=== PATIENT | female | born 1955 | race African-American/Black ===

== ENCOUNTER 2017-01-30 08:20 | Emergency (ER) | payer OTHER ==
[~2017-01-30] VITALS: Ht 162.6 cm; Wt 89.0 kg
[~2017-01-30 08:20] MED LIST: ADVAIR 250/501 DISK IH; ALEVE220 MG PO; ALLOPURINOL100 MG PO; AMBIEN10 MG PO; AMITRIPTYLINE H50 MG PO; AMLODIPINE BESY10 MG PO; ASPIRIN81 M2 PO; ATENOLOL25 M1 NG; CARVEDILOL12.5 MG PO; CARVEDILOL25 MG PO; CLOPIDOGREL75 MG PO; COLACE100 MG PO; COREG25 M1 PO; CRESTOR20 MG PO; CRESTOR40 MG PO; Coreg PO; DELTASONE20 M1 PO; DEXILANT30 MG PO; DIPHENHYDRAMINE25 M2 PO; DOCUSATE SODIU1 EACH PO; ECOTRIN325 MG PO; EFFEXOR XR150 MG PO; EFFEXOR XR75 MG PO; ESCITALOPRAM OX10 MG PO; Ecotrin PO; FLEXERIL10 MG PO; GABAPENTIN300 MG PO; HYDROCHLOROTHIA25 MG PO; LATANOPROST2.5 ML BOTH EYES; LIDEX 0.05% CRE60 GM TP; LISINOPRIL10 MG PO; LISINOPRIL40 MG PO; LO-DOSE ASPIRIN81 M1 PO; LYRICA150 MG PO; LYRICA50 MG PO; LYRICA75 MG PO; METHYLPREDNISOLO4 MG PO; MIRALAX17 GM PO; NICOTINE PATCH1 EAC1 TD; NICOTINE PATCH1 EACH TD; NITROSTAT0.4 MG SL; Norvasc PO; ONE-A-DAY ESSE1 EAC1 PO; OXYCODONE HCL10 MG PO; OXYCODONE HCL15 MG PO; PEN-VEE K,VEET500 MG PO; PERCOCET 7.5-51 EACH PO; PLAVIX75 MG PO; PREDNISONE20 MG PO; PROAIR HFA8.5 GM IH; Percocet 5/325,Endoc PO; Plavix PO; RANITIDINE HCL150 MG PO; SYMBICORT60 INHALA1 IH; TOPAMAX50 MG PO; VALIUM5 MG PO; VENLAFAXINE HC150 MG PO; VENTOLIN HFA18 GM IH; VITAMIN D-3 401 EACH PO; WELLBUTRIN75 MG PO; ZESTRIL,PRINIVI40 MG PO; ZITHROMAX250 MG PO; ZOLPIDEM TARTRAT5 MG PO; Zestril,Prinivil PO
[2017-01-30 12:51] LABS: EOSINOPHIL (%) 3.5 % (0-5); EOSINOPHIL COUNT 0.2 K/uL (0-0.3); HEMATOCRIT 41.9 % (36.0-46.0); IMMATURE GRANULOCYTE (%) 0.2 % (0.0-0.7); INSTRUMENT ABS NEUTROPHIL CT 2.5 K/uL; LYMPHOCYTE COUNT 1.6 K/uL (1.0-2.8); MCH 29.7 PG (29.0-34.0); MCV 92.9 FL (83-99); MEAN PLAT.VOLUME 10.8 uM^3 (9.5-12.4); MONOCYTE (%) 9.8 % (3-12); MONOCYTE COUNT 0.5 K/uL (0-0.8); NEUTROPHIL (%) 52.5 % (45-76); NEUTROPHIL COUNT 2.5 K/uL (1.8-6.4); PLATELET COUNT 185 K/uL (156-360); RBC DIS.WIDTH-CV 13.2 % (11.8-14.6); RBC DIS.WIDTH-SD 45.2 % (39-53); RED BLOOD COUNT 4.51 M/uL (3.80-5.20); WHITE BLOOD COUNT 4.8 K/uL (4.1-10.2)
[2017-01-30 13:03] LABS: CHLORIDE 108 mEq/L (99-109); POTASSIUM 4.2 mEq/L (3.7-5.4); SODIUM 144 mEq/L (136-147)
[2017-01-30 13:05] LABS: GLUCOSE 90 mg/dL (70-99)
[2017-01-30 13:06] LABS: ANION GAP 10 MEQ/L (2-14)
[2017-01-30 13:09] LABS: GFR ESTIMATE (CALCULATED) > 59 mL/min/
[2017-01-30 13:10] LABS: UREA NITROGEN (BUN) 11 mg/dL (9-23)
[2017-01-30 13:17] LABS: TROP-I INTERPRETATION NEGATIVE; TROPONIN-I < 0.01 ng/mL (0.0-0.30)
[2017-01-30] MEDS ORDERED: HYDROCHLOROTHIA25 MG PO (14:42)
[2017-01-30] MEDS ORDERED: NORVASC10 MG PO (14:42)
[2017-01-30 18:18] VITALS: BP 166/104
== END 2017-01-30 18:45 | disposition home or self-care (01) ==
LOC: EME 08:20 → NUC 08:20 → EDSTATUS 08:30 → NUC 08:30 → EME 18:45
PROVIDERS: Emergency Medicine
DX: I16.0 Hypertensive urgency (principal); R51 Headache; J44.9 Chronic obstructive pulmonary disease, unspecified; I25.10 Atherosclerotic heart disease of native coronary artery without angina pectoris; I25.2 Old myocardial infarction; E78.5 Hyperlipidemia, unspecified; F17.200 Nicotine dependence, unspecified, uncomplicated; Z87.442 Personal history of urinary calculi; Z86.73 Personal history of transient ischemic attack (TIA), and cerebral infarction without residual deficits; Z79.82 Long term (current) use of aspirin; Z95.5 Presence of coronary angioplasty implant and graft
CPT/HCPCS: 70450; 71010; 78451; 78452; 78999; 80048; 84484; 85025; 93005; 99281; 99285; A9500; J1200; J2765; J7030

== ENCOUNTER 2017-02-24 16:29 | Emergency (ER) | payer OTHER ==
[~2017-02-24] VITALS: Ht 165.1 cm; Wt 90.6 kg
[~2017-02-24 16:29] MED LIST changes: +NORVASC10 MG PO
[2017-02-24 17:33] LABS: HEMATOCRIT 39.4 % (36.0-46.0); MCH 29.7 PG (29.0-34.0); MCHC 32.7 G/DL (30.0-36.0); MCV 90.6 FL (83-99); MEAN PLAT.VOLUME 9.9 uM^3 (9.5-12.4); PLATELET COUNT 207 K/uL (156-360); RBC DIS.WIDTH-SD 43.1 % (39-53); RED BLOOD COUNT 4.35 M/uL (3.80-5.20); WHITE BLOOD COUNT 5.9 K/uL (4.1-10.2)
[2017-02-24 17:46] LABS: CHLORIDE 104 mEq/L (99-109); POTASSIUM 3.8 mEq/L (3.7-5.4); SODIUM 143 mEq/L (136-147)
[2017-02-24 17:48] LABS: GLUCOSE 94 mg/dL (70-99)
[2017-02-24 17:49] LABS: ANION GAP 14 MEQ/L (2-14)
[2017-02-24 17:50] LABS: TOTAL BILIRUBIN 0.5 mg/dL (0.0-1.0)
[2017-02-24 17:51] LABS: ALKALINE PHOSPHATASE 89 IU/L (3-129)
[2017-02-24 17:52] LABS: GFR ESTIMATE (CALCULATED) > 59 mL/min/
[2017-02-24 17:53] LABS: DIRECT BILIRUBIN 0.2 mg/dL (0.0-0.3); UREA NITROGEN (BUN) 14 mg/dL (9-23)
[2017-02-24 19:59] LABS: ADD MIUA? YES; BILIRUBIN NEGATIVE; BLOOD SMALL; COLOR YELLOW ((YELLOW)); GLUCOSE (STRIP) NEGATIVE; KETONES NEGATIVE; LEUKOCYTES NEGATIVE; NITRITE NEGATIVE; PROTEIN (STRIP) NEGATIVE; SPECIFIC GRAVITY 1.012 (1.000-1.030); UROBILINOGEN 0.2 MG/DL (0.2-1.0)
[2017-02-24 20:03] LABS: BACTERIA RARE /HPF; EPITHELIAL CELLS RARE /HPF; MUCUS TRACE /LPF; RED BLOOD CELLS 0-5 /HPF (0-5); UCUL ADDED? NO; WHITE BLOOD CELLS 0-5 /HPF (0-5)
[2017-02-24] MEDS ORDERED: BENTYL10 MG PO (21:30)
[2017-02-24] MEDS ORDERED: NORCO 5/3251 TABLET PO (21:30)
[2017-02-24] MEDS ORDERED: ZOFRAN ODT8 MG PO (21:30)
[2017-02-24 22:04] VITALS: BP 134/95
== END 2017-02-24 22:05 | disposition home or self-care (01) ==
LOC: EME 16:29
DX: R10.31 Right lower quadrant pain (principal); I10 Essential (primary) hypertension; I25.10 Atherosclerotic heart disease of native coronary artery without angina pectoris; I25.2 Old myocardial infarction; Z95.5 Presence of coronary angioplasty implant and graft; J44.9 Chronic obstructive pulmonary disease, unspecified; F32.9 Major depressive disorder, single episode, unspecified; F17.200 Nicotine dependence, unspecified, uncomplicated; Z79.02 Long term (current) use of antithrombotics/antiplatelets; Z79.82 Long term (current) use of aspirin
CPT/HCPCS: 74177; 80053; 81003; 82248; 85027; 99281; 99284; J2270; J2405; J7040

== ENCOUNTER → 2017-05-05 | Outpatient (CLI) | payer OTHER ==
[~2017-05-05] MED LIST changes: +BENTYL10 MG PO; +NORCO 5/3251 TABLET PO; +ZOFRAN ODT8 MG PO
== END | disposition home or self-care (01) ==
LOC: NUC 04-28 07:40
DX: E05.20 Thyrotoxicosis with toxic multinodular goiter without thyrotoxic crisis or storm (principal)
CPT/HCPCS: 78014; 78999; A9516

== ENCOUNTER → 2017-05-19 | Outpatient (CLI) | payer OTHER | END | disposition home or self-care (01) | LOC: NUC 11:00 | DX: E05.90 Thyrotoxicosis, unspecified without thyrotoxic crisis or storm (principal) | CPT/HCPCS: 79005; A9517 ==

== ENCOUNTER → 2017-09-03 | Outpatient (CLI) | payer OTHER | END | disposition home or self-care (01) | LOC: NUC 08-19 08:30 | DX: R07.89 Other chest pain (principal); I25.10 Atherosclerotic heart disease of native coronary artery without angina pectoris; F17.210 Nicotine dependence, cigarettes, uncomplicated; I25.2 Old myocardial infarction; Z82.49 Family history of ischemic heart disease and other diseases of the circulatory system | CPT/HCPCS: 78452; 93017; A9500; J2785 ==

== ENCOUNTER → 2017-11-10 | Outpatient (CLI) | payer OTHER ==
[~2017-11-10] VITALS: Ht 165.1 cm; Wt 88.9 kg
[~2017-11-10] MED LIST changes: +BIOTIN 5000MCG PO; -CRESTOR20 MG PO; +FISH OIL 1,0001 EAC7 PO; +MS CONTIN,ORAMO15 M1 PO; +NEURONTIN400 MG PO; +ZANAFLEX4 M1 PO
[2017-11-10 13:41] LABS: HEMATOCRIT 41.2 % (36.0-46.0); MCV 92.2 FL (83-99)
[2017-11-10 13:46] LABS: CHLORIDE 103 MEQ/L (99-109); POTASSIUM 3.6 MEQ/L (3.7-5.4); SODIUM 141 MEQ/L (136-147)
[2017-11-10 13:52] LABS: CREATININE 0.9 MG/DL (0.6-1.3); GFR ESTIMATE (CALCULATED) > 59 mL/min/; GLUCOSE 120 mg/dL (70-99); UREA NITROGEN (BUN) 14 mg/dL (9-23)
== END | disposition home or self-care (01) ==
LOC: AMB 10-27 13:30
PROVIDERS: Anesthesiology
DX: Z12.11 Encounter for screening for malignant neoplasm of colon (principal); Z86.010 Personal history of colon polyps; Z80.0 Family history of malignant neoplasm of digestive organs; K63.5 Polyp of colon; D12.3 Benign neoplasm of transverse colon; K29.60 Other gastritis without bleeding; K64.8 Other hemorrhoids; K62.5 Hemorrhage of anus and rectum; R10.13 Epigastric pain; I11.9 Hypertensive heart disease without heart failure; I25.2 Old myocardial infarction; I25.10 Atherosclerotic heart disease of native coronary artery without angina pectoris; Z95.5 Presence of coronary angioplasty implant and graft; F17.210 Nicotine dependence, cigarettes, uncomplicated; I48.0 Paroxysmal atrial fibrillation; Z79.82 Long term (current) use of aspirin; Z91.040 Latex allergy status; Z88.5 Allergy status to narcotic agent
CPT/HCPCS: 80048; 85014; 85018; 88305; 88342 TC; J2250